=== PATIENT | male | born 1945 | race Caucasian/White ===

== ENCOUNTER 2023-02-07 12:03 | Outpatient (CLI) | payer OTHER | END 2023-02-07 12:04 | disposition home or self-care (01) | LOC: EEG 12:03 | PROVIDERS: ATTEND Psychiatry & Neurology Neurology | DX: R56.9 Unspecified convulsions (principal); I67.82 Cerebral ischemia; Z98.890 Other specified postprocedural states | CPT/HCPCS: 70450; 95816; 95957 ==

== ENCOUNTER 2023-02-11 18:00 | Outpatient (CLI) | payer OTHER | END 2023-02-11 18:01 | disposition home or self-care (01) | LOC: SLEEPLAB 18:00 | PROVIDERS: ATTEND Nurse Practitioner Family | DX: G47.33 Obstructive sleep apnea (adult) (pediatric) (principal); F32.A Depression, unspecified; R06.83 Snoring; I10 Essential (primary) hypertension | CPT/HCPCS: 95800 ==

== ENCOUNTER 2023-02-27 19:30 | Outpatient (CLI) | payer OTHER | END 2023-02-27 19:31 | disposition home or self-care (01) | LOC: SLEEPLAB 19:30 | PROVIDERS: ATTEND Nurse Practitioner Family | DX: G47.33 Obstructive sleep apnea (adult) (pediatric) (principal); I10 Essential (primary) hypertension; R06.83 Snoring; F32.A Depression, unspecified | CPT/HCPCS: 95811 ==

== ENCOUNTER 2023-09-06 16:17 | Inpatient (IN) | payer OTHER ==
[2023-09-06] MEDS ORDERED: niCARdipine 25 MG/10 ML SDV ONE (16:31)
[2023-09-06 16:44] LABS: #Eosinphils 0.3 thou/uL (0.0-0.7); #Monocytes 0.8 thou/uL (0.11-0.59); #Neutrophils 3.9 thou/uL (1.40-6.50); %Basophils 0.4 % (0.0-1.0); %Lymphocytes 26.1 % (21.0-51.0); %Monocytes 11.5 % (0.0-10.0); %Neutrophils 57.9 % (42.0-75.0); Hematocrit 42.7 % (42.0-52.0); Hemoglobin 14.7 g/dL (14.0-18.0); Mean Corpuscular HGB CONC 34.4 g/dL (32.0-36.0); Mean Corpuscular Hemoglobin 31.7 pg (27.0-31.0); Mean Corpuscular Volume 92.2 fl (78.0-98.0); Mean Platelet Volume 10.3 fL (7.4-10.4); Platelet Count 210 10x3/uL (130-400); RBC Distribution Width 13.4 % (11.5-14.5); Red Blood Cell (RBC) Count 4.63 mill/uL (4.70-6.10); White Blood Cell (WBC) Count 6.8 10x3/uL (4.8-10.8)
[2023-09-06 16:58] LABS: INR-International Normal Ratio 1.2; PTT 31.1 sec (22.9-36.1); Prothrombin Time 14.7 sec (12.0-14.7)
[2023-09-06] MEDS ORDERED: ADMIXTURE FEE IV SCH (17:00)
[2023-09-06] MEDS ORDERED: [UNRECOGNIZED DRUG - OTHER] IV SCH (17:00)
[2023-09-06] MEDS ORDERED: HUM PROTHROMBIN CPLX IV SCH (17:00)
[2023-09-06 17:11] LABS: Troponin I Less than 0.010 ng/mL (< 0.028)
[2023-09-06 17:12] LABS: ALT (SGPT) 32 U/L (8-55); AST (SGOT) 32 U/L (5-34); Albumin 4.1 g/dL (3.4-4.8); Alkaline Phosphatase 78 U/L (40-110); Anion Gap 12 mmol/L (10-20); BUN (Urea Nitrogen) 14 mg/dL (8.4-25.7); Bilirubin, Total 1.3 mg/dL (0.2-1.2); Calc. Creatinine Clearance 0 mL/min (70-130); Calcium 9.4 mg/dL (7.8-10.44); Carbon Dioxide 27 mmol/L (23-31); Chloride 102 mmol/L (98-107); Estimated GFR 91; Globulin 2.7 g/dL (2.4-3.5); Glucose 112 mg/dL (83-110); Potassium 3.7 mmol/L (3.5-5.1); Protein, Total 6.8 g/dL (5.8-8.1); Sodium 137 mmol/L (136-145)
[2023-09-06] MEDS ORDERED: Morphine 2 MG/ML VIAL ONE (17:46)
[2023-09-06] MEDS ORDERED: Ondansetron PF 4 MG/2 ML Vial ONE (17:46)
[2023-09-06] MEDS: levETIRAcetam 500 MG (5 mL) VIAL SLOW IVP SCH (23:23)
[2023-09-06] MEDS: Ampicillin/Sulbactam 3 GM in Sodium Chloride 0.9% 100 ML IVPB SCH (23:28)
[2023-09-06] MEDS: Labetalol HCl 100 MG/20 ML VIAL SLOW IVP PRN (23:36)
[2023-09-07] MEDS: levETIRAcetam 500 MG (5 mL) VIAL SLOW IVP SCH ×2 (00:20→08:06)
[2023-09-07] MEDS: Ampicillin/Sulbactam 3 GM in Sodium Chloride 0.9% 100 ML IVPB SCH (00:20)
[2023-09-07] MEDS: niCARdipine 25 MG in Sodium Chloride 0.9% 250 ML 250 ML IVPB PRN (01:05)
[2023-09-07] MEDS: Morphine 2 MG/ML VIAL SLOW IVP PRN (02:53)
[2023-09-07] MEDS ORDERED: Dexamethasone 4 mg/ml Vial SLOW IVP SCH (05:00)
[2023-09-07] MEDS: Dexamethasone 10 MG/ML VIAL SLOW IVP SCH ×2 (05:29→11:19)
[2023-09-07] MEDS: Levothyroxine Sodium 112 MCG TAB PO SCH (05:29)
[2023-09-07] MEDS: Pantoprazole 40 MG VIAL IVP SCH (08:06)
[2023-09-07 08:09] LABS: Hematocrit 40.9 % (42.0-52.0); Hemoglobin 13.4 g/dL (14.0-18.0); Manual Diff?? YES; Mean Corpuscular HGB CONC 32.8 g/dL (32.0-36.0); Mean Corpuscular Hemoglobin 32.5 pg (27.0-31.0); Mean Platelet Volume 11.7 fL (7.4-10.4); Platelet Count 186 10x3/uL (130-400); RBC Distribution Width 13.8 % (11.5-14.5); Red Blood Cell (RBC) Count 4.12 mill/uL (4.70-6.10); White Blood Cell (WBC) Count 8.9 10x3/uL (4.8-10.8)
[2023-09-07 08:20] LABS: Delete Auto Diff?? YES; Mean Corpuscular Volume 99.3 fl (78.0-98.0)
[2023-09-07 08:49] LABS: Band 5 % (5-11); CellaVision Operator ID lab.sh2; Large Platelets 2.3 % (0-5); Lymphocytes 15 % (21-51); Neutrophil 81 % (42-75); Platelet Adequacy Comment Platelets Normal; RBC Morphology Within Normal Limits; Smudge Cells 3.4 %; Total Cell Count 87
[2023-09-07 09:31] LABS: Chloride 99 mmol/L (98-107); Potassium 3.4 mmol/L (3.5-5.1); Sodium 136 mmol/L (136-145)
[2023-09-07 09:32] LABS: Calcium 9.2 mg/dL (7.8-10.44); Glucose 160 mg/dL (83-110)
[2023-09-07 09:34] LABS: Anion Gap 12 mmol/L (10-20); Carbon Dioxide 28 mmol/L (23-31)
[2023-09-07 09:35] LABS: Calc. Creatinine Clearance 135 mL/min (70-130); Estimated GFR 94
[2023-09-07 09:36] LABS: BUN (Urea Nitrogen) 9 mg/dL (8.4-25.7)
[2023-09-07] MEDS ORDERED: Electrolyte Replacement Protocol 1 EACH FS SCH (10:30)
[2023-09-07] MEDS ORDERED: Electrolyte Replacement Protocol FS PRN (10:45)
[2023-09-07] MEDS: Potassium Chloride 20 MEQ in Premix 1 BAG IVPB SCH (11:19)
[2023-09-07 19:11] LABS: Potassium 3.6 mmol/L (3.5-5.1)
[2023-09-08] MEDS: Magnesium 2 GM/50 ML(in water) 2 GM in Premix 1 BAG IVPB SCH (00:39)
[2023-09-08] MEDS: Metoprolol Tartrate 5 MG (5 mL) VIAL IVP SCH ×2 (01:47→04:24)
[2023-09-08 06:37] LABS: Anion Gap 12 mmol/L (10-20); BUN (Urea Nitrogen) 15 mg/dL (8.4-25.7); Calc. Creatinine Clearance 128 mL/min (70-130); Calcium 9.6 mg/dL (7.8-10.44); Carbon Dioxide 27 mmol/L (23-31); Chloride 102 mmol/L (98-107); Estimated GFR 92; Glucose 160 mg/dL (83-110); Potassium 3.8 mmol/L (3.5-5.1); Sodium 137 mmol/L (136-145)
[2023-09-08] MEDS ORDERED: Artificial Tear Sol 15 ML BOT EA EYE PRN (09:30)
[2023-09-09] MEDS: Ondansetron PF 4 MG/2 ML Vial IVP PRN (06:15)
[2023-09-09] MEDS: Acetaminophen 650 MG Suppository PR PRN (08:19)
[2023-09-09 08:56] LABS: #Monocytes 1.1 thou/uL (0.11-0.59); %Basophils 0.1 % (0.0-1.0); %Lymphocytes 4.8 % (21.0-51.0); %Monocytes 6.7 % (0.0-10.0); %Neutrophils 87.8 % (42.0-75.0); Hematocrit 48.5 % (42.0-52.0); Hemoglobin 16.6 g/dL (14.0-18.0); Mean Corpuscular HGB CONC 34.2 g/dL (32.0-36.0); Mean Corpuscular Hemoglobin 31.9 pg (27.0-31.0); Mean Corpuscular Volume 93.3 fl (78.0-98.0); Mean Platelet Volume 10.4 fL (7.4-10.4); Platelet Count 218 10x3/uL (130-400); White Blood Cell (WBC) Count 15.9 10x3/uL (4.8-10.8)
[2023-09-09 09:16] LABS: ALT (SGPT) 39 U/L (8-55); AST (SGOT) 48 U/L (5-34); Alkaline Phosphatase 88 U/L (40-110); Anion Gap 16 mmol/L (10-20); BUN (Urea Nitrogen) 28 mg/dL (8.4-25.7); Bilirubin, Total 1.6 mg/dL (0.2-1.2); Calc. Creatinine Clearance 105 mL/min (70-130); Calcium 9.2 mg/dL (7.8-10.44); Carbon Dioxide 24 mmol/L (23-31); Chloride 107 mmol/L (98-107); Estimated GFR 88; Globulin 2.9 g/dL (2.4-3.5); Glucose 151 mg/dL (83-110); Potassium 3.8 mmol/L (3.5-5.1); Protein, Total 6.9 g/dL (5.8-8.1); Sodium 143 mmol/L (136-145)
[2023-09-09] MEDS: Sodium Chloride 0.9% 2,000 ML IV SCH (13:08)
[2023-09-09] MEDS ORDERED: Scopolamine 1 mg/72 hour Patch TD SCH (16:00)
[2023-09-09] MEDS: Scopolamine 1 mg/72 hour Patch TD SCH (17:22)
[2023-09-10] MEDS: hydrALAZINE 20 MG/ML VIAL SLOW IVP PRN (03:46)
[2023-09-11] MEDS: Ampicillin/Sulbactam 3 GM in Sodium Chloride 0.9% 100 ML IVPB SCH (15:45)
[2023-09-12] MEDS: hydrALAZINE 20 MG/ML VIAL SLOW IVP SCH (00:48)
[2023-09-12 15:25] VITALS: BMI 37.3
[2023-09-12] MEDS: Scopolamine 1 mg/72 hour Patch TD SCH (15:40)
[2023-09-13 05:10] LABS: Mean Corpuscular HGB CONC 32.7 g/dL (32.0-36.0); Mean Corpuscular Hemoglobin 31.1 pg (27.0-31.0); Mean Corpuscular Volume 95.2 fl (78.0-98.0); Mean Platelet Volume 10.7 fL (7.4-10.4); Platelet Count 168 10x3/uL (130-400); RBC Distribution Width 14.1 % (11.5-14.5); Red Blood Cell (RBC) Count 5.46 mill/uL (4.70-6.10); White Blood Cell (WBC) Count 16.3 10x3/uL (4.8-10.8)
[2023-09-13 15:54] VITALS: BP 167/111; TEMP 98.6
[2023-09-13] MEDS: Lorazepam 2 MG/ML VIAL SLOW IVP PRN (18:40)
== END 2023-09-13 18:50 | disposition hospice, home (50) | DRG 64 ==
LOC: ERS 16:17 → ERHOLD 17:29 → CCU 21:09 → 2SE 09-08 22:15
PROVIDERS: ADMIT Internal Medicine; ATTEND Internal Medicine
DX: I60.9 Nontraumatic subarachnoid hemorrhage, unspecified (principal); G93.6 Cerebral edema; J69.0 Pneumonitis due to inhalation of food and vomit; G81.91 Hemiplegia, unspecified affecting right dominant side; E78.5 Hyperlipidemia, unspecified; E03.9 Hypothyroidism, unspecified; I10 Essential (primary) hypertension; I25.10 Atherosclerotic heart disease of native coronary artery without angina pectoris; G47.33 Obstructive sleep apnea (adult) (pediatric); Z51.5 Encounter for palliative care; Z96.653 Presence of artificial knee joint, bilateral; Z66 Do not resuscitate; Z96.642 Presence of left artificial hip joint; E87.6 Hypokalemia; N28.9 Disorder of kidney and ureter, unspecified; R13.12 Dysphagia, oropharyngeal phase; Z98.84 Bariatric surgery status; Z79.899 Other long term (current) drug therapy
CPT/HCPCS: 36415; 36416; 70450; 71045; 74177; 74230; 80048; 80053; 83735; 83880; 83930; 84443; 84484; 85025; 85027; 85610; 85730; 93005; 93010; 93306; 94760; 96365; 96375; C9113; J0295; J0360; J1100; J1953; J2060; J2272; J2405; J3475; J3480; J3490; J7050; J7168